=== PATIENT | female | born 1990 | race Caucasian/White ===

== ENCOUNTER 2016-11-28 10:30 | Emergency (ER) ==
[2016-11-28 10:36] VITALS: BP 137/70
--- NOTE | 2016-11-28 10:44 | PROVIDER DOCUMENTATION ---
HPI-EENT General - General Chief Complaint: Earache Stated Complaint: ear pain Time Seen by Provider: 11/28/16 10:37 Source: patient Allergies/Adverse Reactions: Patient Allergies Allergy/AdvReac Type Severity Reaction Status Date / Time cephalexin monohydrate * Allergy Intermediate HIVES Verified 11/28/16 11:01 [From Keflex] Latex, Natural Rubber Allergy RASH Verified 11/28/16 11:01 Home Medications: Home Medication List Medication Instructions Recorded Confirmed Last Taken Type Azithromycin [Zithromax Z-Dayday] 250 mg PO DIRECTED #1 pkg 11/28/16 Unknown Rx Loratadine/Pse E.r. 24 Hr 1 each PO DAILY #20 tablet 11/28/16 Unknown Rx [Claritin-D 24 Hr] Methylprednisolone [Medrol Dosepak] 4 mg PO DIRECTED #1 package 11/28/16 Unknown Rx - History of Present Illness-EENT General Nature of Presenting Problem: Pt is a 26 y/o F c chief complaint of congestion and bilat hearing loss x 1 day. Pt states she has had rhinorrhea and sinus tenderness. She now feels as though she has water on both of her ears. Pt denies any pain. She has had a subjective fever. On arrival, pt is in minimal distress. Review of Systems - Adult - REVIEW OF SYSTEMS - ADULT Constitutional: reports: no symptoms reported. denies: chills, fatique Eyes: reports: no symptoms reported. denies: blurred vision, double vision Ears, Nose, Mouth & Throat: reports: ear pain. denies: nose pain Cardiovascular: reports: no symptoms reported. denies: chest pain, orthopnea Respiratory: reports: no symptoms reported. denies: cough, shortness of breath Gastrointestinal: reports: no symptoms reported. denies: abdominal pain, nausea Genitourinary: reports: no symptoms reported Musculoskeletal: reports: no symptoms reported. denies: bone pain, joint pain, joint swelling Integumentary: reports: no symptoms reported. denies: hives, itching, rash Neurological: reports: no symptoms reported. denies: numbness, paresthesia Psychiatric: reports: no symptoms reported. denies: anxiety, emotional problems Endocrine: reports: no symptoms reported. denies: cold intolerance, heat intolerance Hematologic/Lymphatic: reports: no symptoms reported. denies: blood clots, low blood count Allergic/Immunologic: reports: no symptoms reported. denies: eczema, hives All Other Systems: Reviewed and Negative Past History - Adult - PAST MEDICAL HISTORY-ADULT Review of Records: reports: Old Records Reviewed, Nursing Assessment Review, Medications Reviewed, Social history reviewed & non-contributory. Major Childhood Illnesses: reports: denies history Cardiovascular: reports: denies history Respiratory: reports: denies history Gastrointestinal: reports: denies history Obstetrical/Gynecological: reports: denies history Genitourinary: reports: denies history Musculoskeletal: reports: denies history Neurological: reports: denies history Psychiatric: reports: denies history Endocrine/Immune: reports: denies history Other Conditions: reports: denies history - PRIOR SURGERIES/PROCEDURES Surgical/Procedure History: reports: none - PRIOR HOSPITALIZATIONS Prior Hospitalizations: reports: none - IMMUNIZATION STATUS Childhood Immunizations: See Nurse Assessment Flu Vaccine: See Nurse Assessment - FAMILY HISTORY Family History: reviewed, not pertinent - SOCIAL HISTORY Smoking: denies Substance Use: none/never Alcohol Use Frequency: never Living Situation: family Physical Exam- EENT - Physical Exam EENT Initial Vital Signs Reviewed: Yes General Appearance: appears well, alert, no apparent distress Eye Exam: bilateral eye: normal inspection, PERRL, EOMI Ear Exam: bilateral ear: swelling (fluid behind TMs bilaterally) Nasal Exam: sinus tenderness. negative: discharge, dried blood, foreign body Throat Exam: normal mouth inspection, pharynx normal Neck: non-tender, normal inspection Respiratory: chest non-tender, lungs clear, normal breath sounds Cardiovascular: normal peripheral pulses, regular rate, rhythm, no edema Abdominal Exam: normal bowel sounds, non tender, soft Lymphatic: no adenopathy Back Exam: normal inspection, no CVA tenderness, no vertebral tenderness Extremity: normal range of motion, non-tender, normal gait Integumentary: normal color, normal turgor, warm/dry Neurologic: grossly normal, no motor/sensory deficits Psych/Mental Status: normal mood/affect, normal thought content, normal thought process, oriented x 3 Progress - PLAN OF CARE/RESULTS Progress/Plan/Lab Results: Vital Signs - 24 hr 11/28/16 10:34 Temperature 98.0 F Pulse Rate 74 Respiratory 16 Rate Blood Pressure 137/70 O2 Sat by Pulse 100 Oximetry Departure - Departure Time of Disposition Order: 10:42 DIAGNOSIS: Fluid level behind tympanic membrane of both ears URI (upper respiratory infection) Qualifiers: URI type: unspecified URI Qualified Code(s): J06.9 - Acute upper respiratory infection, unspecified Sinusitis Qualifiers: Sinusitis location: unspecified location Chronicity: acute Recurrence: non- recurrent Qualified Code(s): J01.90 - Acute sinusitis, unspecified Disposition: HOME 01 Certified Medical Emergency: Emergent Condition: Stable Additional Instructions: ED Follow Up Instructions: You have been treated by a care provider in the Emergency Department. These instructions are being provided to you so you can have an understanding of how to care for yourself upon discharge. Upon discharge from the Emergency Department, you are responsible for making arrangements for follow-up care by a physician of your choice. Take all prescribed medications as directed. Return to the Emergency Department immediately for any new or worsening symptoms. You may call the Physician Referral phone number at [phone] to obtain a list of Physicians who are taking new patients. Prescriptions: Loratadine/Pse E.r. 24 Hr [Claritin-D 24 Hr] 1 each PO DAILY #20 tablet Methylprednisolone [Medrol Dosepak] 4 mg PO DIRECTED #1 package Azithromycin [Zithromax Z-Dayday] 250 mg PO DIRECTED #1 pkg Referrals: Cade Desai MD [STAFF PHYSICIAN] - Instructions: Upper Respiratory Infection, Adult, Sinusitis, [id number] Attestation - Physician/ LEON Attestation Patient care was provided by Advanced Practice Provider:: Yes Advanced Practice Provider:: Oneal Lock Advanced Practice Provider documentation review:: The Mid-level provider documentation, treatment plan and medical decision making was reviewed by the physician who agrees with all treatment and medical decision making by the MLP.
== END 2016-11-28 11:03 | disposition home or self-care (01) ==
LOC: ED 10:30
DX: J01.90 Acute sinusitis, unspecified (principal); J06.9 Acute upper respiratory infection, unspecified; H73.893 Other specified disorders of tympanic membrane, bilateral; H92.03 Otalgia, bilateral; R09.81 Nasal congestion; H91.93 Unspecified hearing loss, bilateral; J34.89 Other specified disorders of nose and nasal sinuses; R50.9 Fever, unspecified

== ENCOUNTER 2019-02-23 16:48 | Inpatient (IN) ==
[2019-02-23] MEDS ORDERED: STADOL IV PRN ×3 (17:00)
[2019-02-23] MEDS ORDERED: REGLAN PO ONE (17:00)
[2019-02-23] MEDS ORDERED: BRETHINE SUBQ PRN (17:00)
[2019-02-23] MEDS ORDERED: PEPCID IV PRN (17:00)
[2019-02-23] MEDS ORDERED: PITOCIN 30 UNITS/NS 30 UNIT/500 ML IV.SOLN IV SCH (17:00)
[2019-02-23] MEDS ORDERED: PEPCID PO ONE (17:00)
[2019-02-23] MEDS ORDERED: CYTOTEC PO ONE (17:00)
[2019-02-23] MEDS ORDERED: PEPCID PO PRN (17:00)
[2019-02-23] MEDS ORDERED: AMPICILLIN 2 GM/NS 2 GM/100 ML IVPB IV ONE (17:00)
[2019-02-23] MEDS ORDERED: KEFZOL 1 GM/D5W 50 ML IV PRN (17:00)
[2019-02-23] MEDS ORDERED: LR 500 ML IV ONE (17:00)
[2019-02-23] MEDS ORDERED: AMBIEN PO PRN (17:00)
[2019-02-23] MEDS ORDERED: TYLENOL PO PRN (17:00)
[2019-02-23] MEDS: LR 1,000 ML IV ONE (18:54)
[2019-02-23] MEDS: CLINDAMYCIN 900 MG/D5W 900 MG/50 ML IVPB IV SCH (19:37)
[2019-02-23 19:51] LABS: BASO# 0.01 X1000 (0.0-0.2); BASO% 0.1 % (0.0-0.8); EOS% 1.6 % (0.0-10.0); HEMATOCRIT 32.9 % (37.0-47.0); HEMOGLOBIN 10.8 g/dL (12.0-16.0); IMM GRAN# 0.05 X1000 (0.0-0.04); IMM GRAN% 0.4 % (0.0-0.5); LYMPH# 2.45 X1000 (1.2-3.4); LYMPH% 19.2 % (20.5-51.1); MCH 29.8 PG (27-31); MCHC 32.8 g/dL (33-37); MCV 90.9 FL (81-99); MONO# 0.69 X1000 (0.11-0.59); MONO% 5.4 % (1.7-9.3); MPV 11.4 FL (7.4-10.4); NEUT# 9.39 X1000 (1.4-6.5); NEUT% 73.3 % (42.2-75.2); PLT 226 X1000 (130-400); RBC 3.62 XMIL (4.2-5.4); RDW 14.7 % (11.5-14.5); WBC 12.79 X1000 (4.8-10.8)
[2019-02-23] MEDS ORDERED: MINERAL OIL MISC ONE (19:57)
[2019-02-23] MEDS ORDERED: XYLOCAINE-MPF 1% INJ ONE (19:57)
[2019-02-23 20:01] LABS: UR AMPHETAMINES QUAL NONE DETECTED (NONE DETECT); UR BARBITUATES QUAL NONE DETECTED (NONE DETECT); UR BENZODIAZEPIN QUAL NONE DETECTED (NONE DETECT); UR CANNABINOIDS QUAL NONE DETECTED (NONE DETECT); UR COCAINE QUAL NONE DETECTED (NONE DETECT); UR METHADONE QUAL NONE DETECTED (NONE DETECT); UR METHAMPHETAMINE QUAL NONE DETECTED (NONE DETECT); UR OPIATES QUAL NONE DETECTED (NONE DETECT); UR OXYCODONE QUAL NONE DETECTED (NONE DETECT); UR PCP QUAL NONE DETECTED (NONE DETECT); UR PROPOXYPHENE QUAL NONE DETECTED (NONE DETECT); UR TCA QUAL NONE DETECTED (NONE DETECT)
[2019-02-23] MEDS: CYTOTEC PO SCH (20:50)
--- NOTE | 2019-02-23 20:55 | HISTORY AND PHYSICAL ---
HPI: Patient is 28-year-old female, G3, P2 who is at 40 weeks gestation. Her cervix is not favorable. Group B strep was positive. Otherwise her care is unremarkable. She did sign tubal papers for permanent sterilization. PAST MEDICAL HISTORY: Unremarkable. PAST SURGICAL HISTORY: None. PAST OB HISTORY: G3, P2. She has proven by vaginal delivery two 7 pounds 15 ounces. PNEUMATIC TOOL OPERATOR HISTORY: Menarche at age 13. FAMILY HISTORY: Significant for diabetes. REVIEW OF SYSTEMS: Significant for migraines. SOCIAL HISTORY: Tobacco use none. Alcohol use none. MEDICATIONS: vitamins and iron. ALLERGIES: Keflex and latex. PHYSICAL EXAMINATION: VITAL SIGNS: Height 5 feet 2, weight 264-1/2 pounds, blood pressure 122/76, pulse of 76, respirations 18, heart rate 143. HEENT: Pupils equal, round, reactive to light and accommodation. Extraocular movements intact. Oropharynx clear. NECK: Supple. No thyromegaly. LUNGS: Clear to auscultation. HEART: Regular rate and rhythm. ABDOMEN: Gravid, nontender. Fundal height was between 40 and 41 cm. PELVIC: On examination of her cervix the cervix was fingertip, thick and high. EXTREMITIES: Mild lower extremity edema. 2+ DTRs bilaterally. ASSESSMENT AND PLAN: Intrauterine 40 weeks for induction of labor. The patient will be admitted on 02/23/2019 for cervical ripening using Cytotec and then moved toward [facility] for induction of labor on 02/24/2019. cc: Malachi Meyer III, MD
[2019-02-23] MEDS ORDERED: AMPICILLIN 1 GM/NS 1 GM/50 ML IVPB IV SCH (21:02)
[2019-02-24] MEDS: CYTOTEC PO SCH (00:44)
[2019-02-24] MEDS: CLINDAMYCIN 900 MG/D5W 900 MG/50 ML IVPB IV SCH ×3 (03:46→20:00)
[2019-02-24] MEDS ORDERED: CYTOTEC PO ONE (04:47)
[2019-02-24] MEDS: LR 1,000 ML IV ONE ×3 (05:02→17:26)
[2019-02-24] MEDS: ZOFRAN IV PRN ×2 (07:07→17:31)
[2019-02-24] MEDS ORDERED: LR 3,000 ML ONE (13:12)
[2019-02-24] MEDS ORDERED: NAROPIN 0.2% INJ ONE (13:30)
[2019-02-24] MEDS ORDERED: FENTANYL-BUPIV-NS 2 MCG-0.1% 200 ML EPIDURAL SCH (14:00)
[2019-02-25] MEDS ORDERED: BICITRA PO ONE (01:12)
[2019-02-25] MEDS ORDERED: DIPRIVAN 1% ONE (01:48)
[2019-02-25] MEDS ORDERED: FENTANYL ONE (02:12)
[2019-02-25] MEDS ORDERED: PITOCIN ONE (02:29)
[2019-02-25] MEDS ORDERED: NEO-SYNEPHRINE ONE (02:39)
[2019-02-25] MEDS ORDERED: SODIUM CHLORIDE 0.9% 20 ML ONE (02:39)
[2019-02-25] MEDS ORDERED: NORCO-5 PO PRN (03:06)
[2019-02-25] MEDS ORDERED: ATARAX PO PRN (03:06)
[2019-02-25] MEDS ORDERED: DEMEROL IM PRN (03:06)
[2019-02-25] MEDS ORDERED: M-M-R II VACCINE SUBQ ONE (03:06)
[2019-02-25] MEDS ORDERED: AMBIEN PO PRN (03:06)
[2019-02-25] MEDS ORDERED: BOOSTRIX VACCINE IM ONE (03:06)
[2019-02-25] MEDS ORDERED: HYDROXYZINE IM PRN (03:06)
[2019-02-25] MEDS ORDERED: DULCOLAX PR PRN (03:06)
[2019-02-25] MEDS ORDERED: DEMEROL PO PRN ×2 (03:06)
[2019-02-25] MEDS ORDERED: PITOCIN 20 UNITS/NS 20 UNITS/1,000 ML IV.SOLN IV ONE (03:06)
[2019-02-25] MEDS ORDERED: PITOCIN IM PRN (03:06)
[2019-02-25] MEDS ORDERED: PHENERGAN IM PRN (03:06)
[2019-02-25] MEDS ORDERED: PITOCIN 10 UNITS/NS 1,000 ML IV SCH (03:15)
[2019-02-25] MEDS ORDERED: LR 1,000 ML IV SCH (03:30)
[2019-02-25] MEDS ORDERED: NARCAN IV PRN (03:30)
[2019-02-25] MEDS ORDERED: ZOFRAN IV PRN (03:30)
[2019-02-25] MEDS ORDERED: BENADRYL IV PRN (03:30)
[2019-02-25] MEDS ORDERED: MORPHINE PCA IV PRN (03:30)
[2019-02-25] MEDS ORDERED: NAROPIN 0.5% INJ ONE (05:02)
[2019-02-25] MEDS: TORADOL IV SCH ×4 (05:15→22:59)
--- NOTE | 2019-02-25 06:32 | OPERATIVE NOTE ---
PROCEDURE DATE: 02/25/2019 PREOPERATIVE DIAGNOSIS: Intrauterine (IUP) at 40 and 2/7ths weeks with failure to progress. The patient also desires permanent sterilization. POSTOPERATIVE DIAGNOSIS: Breech presentation. Operative delivery of a female infant, 9 pounds 9 ounces. Apgars of 9 and 10 at 02:14 on 02/25/2019. PROCEDURE PERFORMED: Primary low transverse and bilateral tubal ligation. SURGEON: Malachi Meyer III, MD. SAFETY ADMIN ASSISTANT: ORT. ANESTHESIA: Epidural Dr. Pete Monroe MD FINDINGS: Normal-appearing uterus, tubes, ovaries, and a mich breech presentation. COMPLICATIONS: None. ESTIMATED BLOOD LOSS: 700 mL. SPECIMENS REMOVED: Right and left fallopian tube segments. DRAINS: Pack to straight drain. COUNTS: All counts were correct x3. INDICATIONS: Patient is a 28-year-old white female G3, P2, at 40 and 2/7ths weeks who had failure to progress after being induced. The induction was discontinued, and the patient was scheduled for . Patient counseled about the risks of surgery including bleeding, infection, bowel or bladder injury. Patient also expressed desire for permanent sterilization. She was counseled about the permanency of the tubal ligation, as well as failure rate of 2 to 12/999, as well as the availability of reversible alternatives such as IUD, control pills and patches etc. DESCRIPTION OF PROCEDURE: The patient was taken to the OR. Epidural was re-dosed. She is placed in the supine position, and then prepped and draped in sterile fashion. Adequate anesthesia was noted by using Allis clamps on skin. Then, a Pfannenstiel skin incision was made using a scalpel to the lower abdomen. This was taken down sharply to the fascia layer. A small rebeka was made in the rectus fascia. Fascial incision was extended bilaterally by curved Navarro scissors. Blunt and sharp dissection of the rectus fascia was then performed superiorly and inferiorly. The rectus muscles were divided in the midline, and the peritoneal layer was entered bluntly. The peritoneal incision was extended superiorly and inferiorly with care taken to avoid the bladder. Bladder blade was placed into the abdominal cavity. Bladder reflection was created using Metzenbaum scissors, and then the bladder blade was replaced back into the abdominal cavity. At this point in time, a transverse incision was made on the lower uterine segment using scalpel. Entrance into the uterine cavity noted clear fluid. Then, upon entry into the uterine cavity, mich breech presentation was noted. A breech extraction was accomplished without difficulty. Delivery of the legs, then the arms, and the head. Bulb suction was then performed of nose and mouth. The umbilical cord was clamped twice and cut. Infant handed to nursery nurse in attendance for delivery. The cord blood sample was obtained at this time. Placenta was then manually extracted. Uterus was exteriorized. Wet lap was placed around the uterus. Dry lap was then used to curette the uterine cavity of clots and debris. Uterine incision was then closed using 0 chromic in a running, locking fashion x1. A small area of oozing was noted on the left corner. This was made hemostatic using a bbbevm-hy-shbsv stitch of 0 chromic. Attention was then turned to the fallopian tubes which were isolated near the isthmus. A small rebeka was made in the mesosalpinx and then 0 plain ties were performed at this area. The segment of fallopian tube was removed. The electrocautery was then used to cauterize the open ends of the fallopian tube. The right fallopian tube segment was handed off to be placed in a specimen container. The left fallopian tube was identified and grasped near the isthmus. A small hole was made in the mesosalpinx with electrocautery, and then two #0 plain sutures was used to obtain a segment of fallopian tube. This was excised using Metzenbaum scissors, and then handed off to be placed in a specimen container. Electrocautery was then used to apply on the open ends of the fallopian tube. Good hemostasis was noted here as well. Inspection of the uterine incision and bladder showed good hemostasis. The posterior cul-de-sac was then irrigated copiously. The uterus was then replaced back into the abdominal cavity. The pericolic gutters were then cleansed using moist lap sponges. The peritoneal incision was then closed using 2-0 chromic in a running fashion x1, and then interrupted sutures of 2-0 chromic were used to reapproximate the rectus muscle. The fascial layer was then closed using 0 PDS in a running fashion x1. Irrigation was then performed of the subcutaneous layer. Electrocautery was used to obtain hemostasis, and then the skin was reapproximated using rachael. Patient tolerated the procedure well, and was taken to the recovery room stable condition. All counts were correct x3. cc: Malachi Meyer III, MD
[2019-02-25] MEDS: FERROUS SULFATE PO SCH (09:10)
[2019-02-25] MEDS: PRECARE PO SCH (09:10)
[2019-02-25] MEDS: MYLICON PO SCH ×4 (09:10→22:59)
[2019-02-25] MEDS: ZOFRAN IV PRN (11:45)
[2019-02-25] MEDS: NORCO-10 PO PRN (15:16)
[2019-02-25 18:51] LABS: BASO# 0.01 X1000 (0.0-0.2); BASO% 0.1 % (0.0-0.8); EOS# 0.03 X1000 (0.0-0.7); EOS% 0.2 % (0.0-10.0); HEMATOCRIT 25.3 % (37.0-47.0); HEMOGLOBIN 8.2 g/dL (12.0-16.0); IMM GRAN# 0.06 X1000 (0.0-0.04); IMM GRAN% 0.4 % (0.0-0.5); LYMPH# 1.64 X1000 (1.2-3.4); LYMPH% 9.9 % (20.5-51.1); MCH 29.6 PG (27-31); MCHC 32.4 g/dL (33-37); MCV 91.3 FL (81-99); MONO# 0.88 X1000 (0.11-0.59); MONO% 5.3 % (1.7-9.3); MPV 10.9 FL (7.4-10.4); NEUT# 13.91 X1000 (1.4-6.5); NEUT% 84.1 % (42.2-75.2); PLT 169 X1000 (130-400); RBC 2.77 XMIL (4.2-5.4); RDW 14.7 % (11.5-14.5); WBC 16.53 X1000 (4.8-10.8)
[2019-02-25] MEDS: PERICOLACE PO SCH (22:59)
[2019-02-26] MEDS: NORCO-10 PO PRN ×7 (00:06→22:31)
[2019-02-26] MEDS ORDERED: LR 1,000 ML IV SCH (03:06)
[2019-02-26] MEDS: MOTRIN PO PRN ×2 (06:20→15:51)
[2019-02-26] MEDS: PRECARE PO SCH (09:38)
[2019-02-26] MEDS: MYLICON PO SCH ×4 (09:38→20:50)
[2019-02-26] MEDS: FERROUS SULFATE PO SCH (09:38)
[2019-02-26 12:05] LABS: BASO# 0.03 X1000 (0.0-0.2); BASO% 0.2 % (0.0-0.8); EOS# 0.12 X1000 (0.0-0.7); EOS% 0.6 % (0.0-10.0); HEMATOCRIT 26.3 % (37.0-47.0); HEMOGLOBIN 8.3 g/dL (12.0-16.0); IMM GRAN# 0.07 X1000 (0.0-0.04); IMM GRAN% 0.4 % (0.0-0.5); LYMPH# 2.94 X1000 (1.2-3.4); LYMPH% 15.7 % (20.5-51.1); MCHC 31.6 g/dL (33-37); MCV 94.9 FL (81-99); MONO# 1.33 X1000 (0.11-0.59); MONO% 7.1 % (1.7-9.3); MPV 11.1 FL (7.4-10.4); NEUT# 14.21 X1000 (1.4-6.5); PLT 210 X1000 (130-400); RBC 2.77 XMIL (4.2-5.4); RDW 15.3 % (11.5-14.5)
[2019-02-26 13:12] LABS: BANDS 1 % (0-1); LYMPHS 15 % (21-51); MONO 5 % (1-9); SEGS 79 % (42-75)
[2019-02-26 13:13] LABS: ANISOCYTOSIS 1+
[2019-02-26] MEDS: PERICOLACE PO SCH (20:49)
[2019-02-27] MEDS: MOTRIN PO PRN ×3 (02:38→20:11)
[2019-02-27] MEDS: NORCO-10 PO PRN ×6 (02:38→23:04)
[2019-02-27] MEDS: MYLICON PO PRN (07:12)
[2019-02-27] MEDS: MYLICON PO SCH ×4 (09:02→23:04)
[2019-02-27] MEDS: PRECARE PO SCH (09:03)
[2019-02-27] MEDS: FERROUS SULFATE PO SCH (09:03)
[2019-02-27] MEDS: PERICOLACE PO SCH (23:04)
[2019-02-28] MEDS: MOTRIN PO PRN (04:34)
[2019-02-28] MEDS: NORCO-10 PO PRN ×2 (04:34→08:51)
[2019-02-28] MEDS: MYLICON PO PRN (07:42)
--- NOTE | 2019-02-28 07:44 | DISCHARGE SUMMARY ---
ADMISSION DATE: 02/23/2019 DISCHARGE DATE: ADMISSION DIAGNOSIS: intrauterine 40 weeks, for labor induction. FINAL DIAGNOSIS: Breech presentation with operative delivery of a female, 9 pounds 9 ounces with Apgars of 9 and 10 at 0214 on 02/25/2019. ADDITIONAL DIAGNOSIS: Patient desires permanent sterilization. PROCEDURES: Primary low transverse section and bilateral tubal ligation. BRIEF HISTORY: Patient is a 28-year-old, white female, G2, P2, at 40 weeks gestation. Cervix not favorable. Group B strep was positive. Otherwise, care was unremarkable. She had expressed a desire for permanent sterilization and had signed Medicaid tubal papers. The patient was placed in on 02/23/2019 for cervical ripening with Cytotec and planned for Pitocin induction of labor. PAST MEDICAL HISTORY: Unremarkable. PAST SURGICAL HISTORY: None. PAST OB HISTORY: G2, P2. Had 2 spontaneous vaginal deliveries. 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 FAMILY HISTORY: Significant for diabetes. REVIEW OF SYSTEMS: Significant for migraines. SOCIAL HISTORY: Tobacco use none. Alcohol use none. MEDICATIONS: vitamins and iron. ALLERGIES: Keflex and latex. PHYSICAL EXAMINATION: Vital Signs: Height 5 feet 2 inches, weight 264.5 pounds, blood pressure 122/76, pulse of 76, respirations 18, heart rate 143. HEENT: Pupils equal, round, and reactive to light and accommodation. Extraocular movements intact. Oropharynx clear. Neck: Supple. No thyromegaly. Lungs: Clear to auscultation. Heart: Regular rate and rhythm. Abdomen: Gravid, nontender. Fundal height was between 40 and 41 cm. Her cervix on exam was fingertip thick and high initially. Extremities: Mild lower extremity edema. 2+ DTRs bilaterally. ASSESSMENT AND PLAN: Intrauterine at 40 weeks, for induction of labor. Patient to be admitted on 02/23/2019 for cervical ripening using Cytotec, and then moved to Pitocin for induction of labor on 02/24/2019. HOSPITAL COURSE: The patient was given 3 doses of Cytotec. Cervix was progressed to about 1.5 cm, and then Pitocin was started on 02/24/2019 and she progressed. Had spontaneous rupture of membranes, but the presentation was still high and she was able to get an epidural placed for pain management, but at one time her labor course became protracted and she stopped dilating at 7 cm. was then initiated. Upon entry into the uterine cavity, it was discovered that the patient had a breech presentation and she had operative delivery of a female , 9 pounds 9 ounces, with Apgars of 9 and 10 at 0214 on 02/25/2019, as well as a tubal ligation at the time of surgery. Her postop course was unremarkable. Hemoglobin postop was 8.2, hematocrit 25.3. Patient was advanced on her diet and became ambulatory and on postop day 3, had stable vital signs and was afebrile. Had been able to tolerate a regular diet and also had exhibited positive flatus. It was felt at this time that the patient could be discharged home. DISCHARGE INSTRUCTIONS: To follow up on 03/04/2019 for postop check and staple removal. She was given instructions on lifting precautions. She is to call for any temperature greater than 101, heavy vaginal bleeding, or severe abdominal pain. DISCHARGE MEDICATIONS: 1. Tolstoy 10, dispensed 30. 2. Colace 100 mg, dispensed 30 with 1 refill. 3. Iron sulfate 325 mg, dispensed 30 with 1 refill. 4. Motrin 800 mg, dispensed 30 with 2 refills. cc: Malachi Meyer III, MD
[2019-02-28 08:39] VITALS: BP 130/68
[2019-02-28] MEDS: MYLICON PO SCH (08:51)
[2019-02-28] MEDS: FERROUS SULFATE PO SCH (08:51)
[2019-02-28] MEDS: PRECARE PO SCH (08:51)
== END 2019-02-28 11:20 | disposition home or self-care (01) | DRG 785 ==
LOC: P.LD 16:48
PROVIDERS: ADMIT Obstetrics & Gynecology; ATTEND Obstetrics & Gynecology
CPT/HCPCS: 80104; 80301; 80305; 85025; 86592; 90715; 94761; 94799; A9270; G0431; G0434; G0477; J0595; J1885; J2270; J2275; J2370; J2405; J2590; J2795; J3010; J3410; J7120; Q9974